=== PATIENT | female | born 1990 | race Caucasian/White ===

== ENCOUNTER 2024-06-28 02:15 | Inpatient (IN) | payer BC, OTHER ==
[~2024-06-28] VITALS: Ht 172.7 cm; Wt 87.2 kg
[2024-06-28] MEDS ORDERED: OXYTOCIN 10UNIT/ML 1ML VIAL ONE (02:18)
[2024-06-28] MEDS ORDERED: LACT. RINGERS/OXYTOCIN 20UNITS 1,000 ML IV ONE (02:18)
[2024-06-28] MEDS ORDERED: LIDOCAINE 2%HCL (LOCAL ANESTH.) INJ 20ML MDV ONE (02:53)
[2024-06-28] MEDS ORDERED: ONDANSETRON HCL 4 MG/2 ML VIAL IV PRN (03:00)
[2024-06-28] MEDS ORDERED: ACETAMINOPHEN 325 MG TAB PO PRN (03:00)
[2024-06-28] MEDS: LIDOCAINE 2%HCL (LOCAL ANESTH.) INJ 20ML MDV IJ PRN (03:20)
[2024-06-28] MEDS: LACT. RINGERS/OXYTOCIN 20UNITS 500 ML IV ONE ×2 (03:21→04:36)
[2024-06-28] MEDS ORDERED: WITCH HAZEL-GLYCERIN PAD TOP PRN (03:30)
[2024-06-28] MEDS ORDERED: PHISODERM TOP SOLN 240ML BTL TOP PRN (03:30)
[2024-06-28] MEDS ORDERED: DERMOPLAST 60ML BOTTLE TOP PRN (03:30)
[2024-06-28 04:48] LABS: Basophils # (auto) 0 10 ^3/uL (0-0.2); Eosinophils # (auto) 0 10 ^3/uL (0-0.8); Hemoglobin 11.9 g/dL (12.2-16.2); Lymphocytes # (auto) 0.6 10 ^3/uL (0.4-5.4); Monocytes % (auto) 2.5 % (0.0-12.0); White Blood Cell 18.1 10^3/uL (4.4-10.8)
[2024-06-28 04:49] LABS: Basophils % (auto) 0.2 % (0.0-2.0); Hematocrit 36.7 % (36.0-46.0); Lymphocytes % (auto) 3.5 % (10.0-50.0); Mean Corpuscular Hemoglobin 26.5 pg (28.0-32.0); Mean Corpuscular Hgb Conc. 32.3 g/dL (32.0-36.0); Mean Corpuscular Volume 82.1 fL (80.0-100.0); Monocytes # (auto) 0.4 10 ^3/uL (0-1.3); Neutrophils % (auto) 93.8 % (37.0-80.0); Platelet Count (auto) 311 10^3/uL (140-450); Red Blood Cells 4.47 10^6/uL (4.0-5.20); Red Cell Distribution Width 18.1 % (11.8-14.3)
[2024-06-28 04:57] LABS: Alkaline Phosphatase 108 U/L (46-116); Anion Gap 15.00001 (5-15); Aspartate Aminotransferase 19 U/L (13-40); BUN/Creatinine Ratio 12.5 (10.0-20.0); Bilirubin, Total 0.3 mg/dL (0.2-1.0); Blood Urea Nitrogen 10 mg/dL (9-23); Calcium 8.9 mg/dL (8.7-10.4); Chloride 104 mmol/L (98-107); Glucose 150 mg/dL (74-106); Potassium 3.2 mmol/L (3.5-5.1); Sodium 129 mmol/L (136-145); Total Protein 6.7 g/dL (5.7-8.2)
[2024-06-28 05:13] LABS: INR 0.93 (0.9-1.15); Partial Thromboplastin Time 24.3 SEC (24.5-34.5); Prothrombin Time 10.1 sec (9.3-11.8)
[2024-06-28 05:15] VITALS: TEMP 99.3
[2024-06-28 05:16] LABS: Lactic Acid w/Reflex 5.5 mmol/L (0.4-2.0)
[2024-06-28 05:17] LABS: Alanine Aminotransferase 9 U/L (7-40); Carbon Dioxide < 10 mmol/L (20-30)
[2024-06-28 07:00] VITALS: BP 127/69; PULSE 84; RESP 16; TEMP 98.4
[2024-06-28 11:00] VITALS: BP 124/65; PULSE 96; RESP 16; TEMP 98
[2024-06-28 15:00] VITALS: BP 117/68; PULSE 86; RESP 16; TEMP 98.2
[2024-06-28] MEDS: POTASSIUM CHL 20 Meq TABLET PO ONE (17:55)
[2024-06-28 19:00] VITALS: BP 120/64; PULSE 86; RESP 16; TEMP 98.4; O2SAT 98
[2024-06-28] MEDS ORDERED: DOCUSATE SOD 100 MG CAP PO SCH (22:00)
[2024-06-29 08:06] LABS: RPR Non Reactive (Non Reactive)
[2024-06-29 12:07] LABS: Rubella Antibodies, IgG <0.90 index (Immune >0.99)
== END 2024-06-28 22:39 | disposition home or self-care (01) | DRG 776 ==
LOC: ER 02:15 → LDRP 02:44
PROVIDERS: ADMIT Obstetrics & Gynecology; ATTEND Obstetrics & Gynecology
PROC: 10E0XZZ Delivery of Products of Conception, External Approach (ICD-10-PCS; principal; 2024-06-28)
DX: O70.1 Second degree perineal laceration during delivery (principal)
CPT/HCPCS: 36415; 59414; 80053; 83605; 85025; 85610; 85730; 86592; 86762; 86803; 86850; 86900; 86901; 87340; 94760; 96360; 96361; 96365; 96366; 96372; G0378; J2590